=== PATIENT | female | born 1950 | race Caucasian/White ===

== ENCOUNTER 2020-01-17 11:12 | Outpatient (CLI) | payer MEDICARE, SELFPAY ==
--- NOTE | 2020-01-17 | ECG_ITS ---
Measurements Intervals [place]blong Rate: 73 P: 69 ME: 183 QRS: 37 QRSD: 102 T: 61 QT: 388 QTc: 428 Interpretive Statements SINUS RHYTHM POSSIBLE LEFT ATRIAL ENLARGEMENT LOW QRS VOLTAGE IN PRECORDIAL LEADS BASELINE ARTIFACT- II, III, AVR, AVL, AVF BORDERLINE ECG Electronically Signed On 01-17-2020 11:38:40 FREIGHT CAR REPAIRER by Emanuel Fung D.O.
== END 2020-01-17 11:13 | disposition home or self-care (01) ==
PROVIDERS: PCP Emergency Medicine; Visit Provider Emergency Medicine
DX: Z01.818 Encounter for other preprocedural examination (principal); R94.31 Abnormal electrocardiogram [ECG] [EKG]
CPT/HCPCS: 93005

== ENCOUNTER 2020-01-23 08:46 | Outpatient (CLI) | payer MEDICARE, SELFPAY ==
--- NOTE | ~2020-01-23 | MM_ITS ---
EXAMINATION: MM scrn nash implant BI w nedra HISTORY: Screening mammogram TECHNIQUE: Craniocaudal and mediolateral oblique 3-D tomosynthesis images with implant displacement a nd synthetic 2-D images were generated. Craniocaudal and mediolateral oblique views of the breasts wi thout implant displacement were obtained using full field digital mammography. CAD analysis was submi tted and interpreted. COMPARISON: 01/02/2019, 12/28/2017, 03/03/2016 BREAST PARENCHYMAL COMPOSITION: There are scattered areas of fibroglandular density. FINDINGS: There is no evidence of suspicious mass, calcification, or architectural distortion to sugg est malignancy in either breast. There has been no suspicious interval change. IMPRESSION: 1. No mammographic evidence of malignancy. 2. Recommend routine screening mammography in one year. BI-RADS Category 1: Negative Reviewed, dictated and finalized at location A. R OPERATOR
== END 2020-01-23 08:47 | disposition home or self-care (01) ==
LOC: ANHIMG 08:54
PROVIDERS: PCP Emergency Medicine; Visit Provider Nurse Practitioner Obstetrics & Gynecology
DX: Z12.31 Encounter for screening mammogram for malignant neoplasm of breast (principal)
CPT/HCPCS: 77063; 77067

== ENCOUNTER 2021-03-24 11:57 | Outpatient (CLI) | payer MEDICARE, SELFPAY ==
--- NOTE | ~2021-03-24 | MM_ITS ---
EXAMINATION: MM scrn nash implant BI w nedra HISTORY: Screening mammogram TECHNIQUE: Craniocaudal and mediolateral oblique 3-D tomosynthesis images with implant displacement a nd synthetic 2-D images were generated. Craniocaudal and mediolateral oblique views of the breasts wi thout implant displacement were obtained using full field digital mammography. CAD analysis was submi tted and interpreted. COMPARISON: Comparison to multiple prior studies sequentially, with oldest reviewed study dated 06/14. BREAST PARENCHYMAL COMPOSITION: There are scattered areas of fibroglandular density. FINDINGS: There is no evidence of suspicious mass, calcification, or architectural distortion to sugg est malignancy in either breast. There has been no suspicious interval change. IMPRESSION: 1. No mammographic evidence of malignancy. 2. Recommend routine screening mammography in one year. BI-RADS Category 1: Negative Reviewed, dictated and finalized at location A. AND GAME WARDEN
== END 2021-03-24 11:58 | disposition home or self-care (01) ==
LOC: ANHIMG 12:01
PROVIDERS: PCP Emergency Medicine; Visit Provider Nurse Practitioner Obstetrics & Gynecology
DX: Z12.31 Encounter for screening mammogram for malignant neoplasm of breast (principal)
CPT/HCPCS: 77063; 77067

== ENCOUNTER 2021-06-30 12:47 | Outpatient (CLI) | payer MEDICARE, SELFPAY ==
--- NOTE | ~2021-06-30 | DEXA_ITS ---
Bone Density Report Name: MAGNO TINEO Age: 70 Sex: Female Ethnicity: White Date of : 1950 Indication: postmenopausal; screening for osteoporosis; height loss; prior fracture; Referring Provider: TOR, LESLIE Huertas Study: Bone densitometry was performed. Exam Date: June 30, 2021 Accession number: [id number] Bone Density: Region BMD T-score Z-score Classification Femoral Neck (Left) 0.560 -2.6 -0.9 Osteoporosis Total Hip (Left) 0.705 -1.9 -0.5 Osteopenia Femoral Neck (Right) 0.571 -2.5 -0.8 Osteoporosis Total Hip (Right) 0.699 -2.0 -0.6 Osteopenia Total Hip Mean 0.702 -2.0 -0.6 Osteopenia World Health Organization criteria for BMD impression classify patients as: Normal (T-score at or above -1.0), Osteopenia (T-score between -1.0 and -2.5), or Osteoporosis (T-score at or below -2.5). 10-year Fracture Risk: FRAX not reported because: Some T-score for Spine Total or Hip Total or Femoral Neck at or below -2.5 Clinical Information Provided by Patient: Has had a low trauma fracture Has used the following medications: Calcium Patient maximum height was 64 Menopause Age: 57 No regular weight bearing exercise Drinks caffeinated beverages Onset of menses at age 15 Number of children 2 Impression: The patient has established osteoporosis, based on the Left Femoral Neck T-score and the existence of a prior fracture. The patient has risk factors, including: previous fracture. Discussion: HIGH RISK OF FRACTURE. BONE DENSITY IS UNDESIRABLY LOW AT ONE OR MORE SKELETAL SITES, CONSISTENT WITH POSTMENOPAUSAL OSTEOPOROSIS. This patient's lowest T-score, in a patient who has previously fractured, meets the World Health Organization's (WHO) criteria for severe osteoporosis. In untreated patients, the risk of osteoporotic fracture increases approximately two-fold for each 1.0 SD decrease in T-score. Low bone density is not the only risk factor for fracture; also consider factors such as patient's age, frailty or poor health, risk of falling, risk of injury, previous osteoporotic fracture, family history of osteoporosis, cigarette smoking, low body weight, etc. Not everyone with low bone mineral density has osteoporosis; osteomalacia and other metabolic bone disorders should also be considered. Patients who have osteoporosis should be evaluated for specific diseases and conditions (secondary causes) that may cause or contribute to bone loss. The [place] Association of Clinical Endocrinologists (AACE) and National Osteoporosis Foundation (NOF) recommend pharmacologic intervention for all postmenopausal women whose T-score is in this range. The patient should follow a healthful lifestyle (good nutrition with adequate calcium and vitamin D, and appropriate weight-bearing exercise). Follow-Up: Consider a repeat BMD and Ve
== END 2021-06-30 12:48 | disposition home or self-care (01) ==
LOC: ANHIMG 12:49
PROVIDERS: PCP Emergency Medicine; Visit Provider Nurse Practitioner Obstetrics & Gynecology
DX: M81.0 Age-related osteoporosis without current pathological fracture (principal); M85.852 Other specified disorders of bone density and structure, left thigh; M85.851 Other specified disorders of bone density and structure, right thigh
CPT/HCPCS: 77080

== ENCOUNTER 2022-05-30 12:43 | Outpatient (CLI) | payer MEDICARE, SELFPAY ==
--- NOTE | ~2022-05-30 | MMUS_ITS ---
EXAMINATION: MM diag nash implant BI w nedra, US breast LT complete HISTORY: Left breast pain TECHNIQUE: Additional 3-D tomosynthesis images of the breasts were performed and synthetic 2-D images were generated. CAD analysis was submitted and interpreted. High resolution complete left breast ult rasound was performed. COMPARISON: Comparison to multiple prior studies sequentially, with oldest reviewed study dated 12/05. BREAST PARENCHYMAL COMPOSITION: BREAST PARENCHYMAL COMPOSITION: There are scattered areas of fibroglandular density. FINDINGS: MAMMOGRAPHIC FINDINGS: There are no suspicious masses, calcifications or architectural distortion in either breast to sugges t malignancy. There are bilateral ULTRASOUND: Complete bilateral US of all 4 quadrants of the left breast and retroareolar region was reviewed. Nor mal heterogeneous echotexture without focal solid or cystic mass. IMPRESSION: 1. No evidence for malignancy in either breast. 2. . Routine yearly screening mammogram and regular clinical breast examination are recommended. BI-RADS Category 1: Negative Reviewed, dictated and finalized at location A. IMPRESSION: 1. No evidence for malignancy in either breast. 2. . Routine yearly screening mammogram and regular clinical breast examination are recommended. BI-RADS Category 1: Negative
== END 2022-05-30 12:44 | disposition home or self-care (01) ==
PROVIDERS: PCP Family Medicine; Visit Provider Nurse Practitioner Obstetrics & Gynecology
DX: N64.4 Mastodynia (principal)
CPT/HCPCS: 76641; 77062; 77066; G0279

== ENCOUNTER 2025-01-16 09:59 | Outpatient (CLI) | payer MEDICARE, SELFPAY ==
--- NOTE | ~2025-01-16 | MM_ITS ---
EXAMINATION: MM scrn nash implant BI w nedra HISTORY: Screening mammogram TECHNIQUE: Craniocaudal and mediolateral oblique 3-D tomosynthesis images with implant displacement and synthetic 2-D images were generated. Craniocaudal and mediolateral oblique views of the breasts without implant displacement were obtained using full field digital mammography. CAD analysis was submitted and interpreted. COMPARISON: Comparison to multiple prior studies sequentially, with oldest reviewed study dated 03/03/2016. BREAST PARENCHYMAL COMPOSITION: Dense: The breasts are heterogeneously dense, which may obscure small masses FINDINGS: There is no evidence of suspicious mass, calcification, or architectural distortion to suggest malignancy in either breast. There has been no suspicious interval change. IMPRESSION: 1. No mammographic evidence of malignancy. 2. Recommend routine screening mammography in one year. BI-RADS Category 1: Negative Reviewed, dictated and finalized at location B. H CUTTING INSPECTOR
--- OUTSIDE RECORDS SUMMARY | 2025-01-16 10:51 | XMS_ITS | Clinical Summary ---
Author Organization [facility] Address [address] [place] [id number] Care Team Providers Care Sand Mill Operator Facing Sand Name Role Phone Kody Palomo MD Primary Care Provider [phone] Social History Tobacco Use Types Packs/Day Years Used Date Smoking Tobacco: Never Assessed Comments Unknown Sex and Gender Information Value Date Recorded Sex Assigned at Not on file Legal Sex Female 2:03 PM CDT Gender Identity Not on file Sexual Orientation Not on file Plan of Treatment Health Maintenance Due Date Last Done Comments Colorectal Cancer Screening Colonoscopy (10 Years) 1950 Hepatitis C 1970 DTaP, Tdap and Td Vaccines ( 1 - Tdap) 12/04/1971 Mammogram Screening 1992 Pneumococcal Vaccine: 50+ Ye ars (1 of 1 - PCV) 2002 Zoster Vaccines (1 of 2) 2002 Annual Medicare Wellness Visit 2017 COVID-19 Vaccine (2 - 2024-2 6 season) 2024 11/18/2020 Influenza Adult (#1) 2024 RSV Immunization or 60+ Years (1 - 1-dose 75+ series) 12/04/2027 Dexa Scan (General) Completed 06/30/2021 Hepatitis A Vaccines Aged Out No long er eligible based on patient's age to complete this topic Meningococcal B Vaccine Aged Out No l onger eligible based on patient's age to complete this topic Meningococcal Vaccine Aged Out No michela keesha eligible based on patient's age to complete this topic RSV Immunizations Under 20 Months Aged Out No longer eligible based on patient's age to complete this topic Insurance [facility]ARE [facility] FIN[facility] Care Teams Sand Mill Operator Facing Sand Relationship Specialty Start Date End Date Kody Palomo MD [address] [id number] PCP - General 03/15/23
--- OUTSIDE RECORDS SUMMARY | 2025-01-16 10:51 | XMS_ITS | Encounter Summary ---
Author Organization [facility] Address [address] [place] [address] Phone Care Team Providers Care Qa Intern Name Role Phone Иван Lujan MD Unavailable [phone] Kody Palomo MD Primary Care Provider Reason for Visit * Reason Comments Medication Refill Encounter Details Date Type Department Care Team (Late st Contact Info) Description [facility] [address] [place] [address] Иван Lujan MD [address] [place] [address] Medication Refill Social History Tobacco Use Types Packs/Day Years Used Date Smoking Tobacco: Former Cigarettes 0 Q uit: 06/04/2020 Smokeless Tobacco: Never Alcohol Use Standard Drinks/Week Comments Yes 0 (1 standard drink = 0.6 oz pur e alcohol) social Comments Unknown Sex and Gender Information Value Date Recorded Sex Assigned at Not on file Legal Sex Female 10:00 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 Requested Prescriptions Pending Prescriptions Disp Refills pregabalin (LYRICA) 100 MG Capsule [Pharmacy Med Name: Pregabalin 100 MG Oral Capsule] 90 Capsule 0 Sig: TAKE 1 CAPSULE BY MOUTH THREE TIMES DAILY Not Delegated - Anticonvulsants Excluding Benzodiazepines Protocol Failed - 05/18/2022 10:36 AM Failed - This refill cannot be delegated Passed - Visit with relevant provider in past 12 months or upcoming 90 days Recent Visits Date Type Provider Dept 04/15/22 Office Visit Иван Lujan MD [facility] Neurology [facility] 11/15/21 Office Visit Иван Lujan MD [facility] 08/12/21 Office Visit Иван Lujan MD [facility] Neurology [facility] Showing recent visits within past 365 days and meeting all other requirements Future Appointments Date Type Provider Dept 07/14/22 Appointment Иван Lujan MD [facility] Showing future appointments within next 90 days and meeting all other requirements documented in this encounter Plan of Treatment Upcoming Encounters Date Type Department Care Team (Late st Contact Info) Description 07/01/2025 1:00 PM CDT [facility] [address] [place] [phone] Иван Lujan MD [address] [place] [address] documented as of this encounter Visit Diagnoses Diagnosis Stenosis of cervical spine with myelopathy documented in this encounter Care Teams Qa Intern Relationship Specialty Start Date End Date Kody Palomo MD [address] [address] [place] [address] PCP - General Family Medicine 04/15/22 Иван Lujan MD [address] [place] [address] Consulting Physician Neurology 05/13/21 documented as of this encounter
--- OUTSIDE RECORDS SUMMARY | 2025-01-16 10:51 | XMS_ITS | Clinical Summary ---
Author Organization [facility] Address [address] [place] [address] Care Team Providers Care Special Service Officer Name Role Phone Kody Palomo MD Primary Care Provider + Allergies Active Allergy Reactions Criticality Noted Date Comments Iron Hives Medium 10/24/2010 Hives Medications pregabalin (LYRICA) 100 mg capsule Take 150 mg by mouth 3 (three) times a day 01/19/20 22 Active finasteride (PROSCAR) 5 mg tablet TAKE 1 TABLET BY MOUTH ON MONDAY, MONDAY AND Monday06/25/19 23 Active spironolactone (ALDACTONE) 50 mg tablet Take 1 tablet (50 mg total) by mouth daily 07/25/19 23 Active aspirin 81 mg enteric coated tablet Take 1 tablet (81 mg total) by mouth daily 30 tablet 11 09/03/19 24 Active rosuvastatin (CRESTOR) 10 mg tablet Take 1 tablet by mouth once daily 90 tablet 1 12/25/19 25 Active rosuvastatin (CRESTOR) 10 mg tablet Take 1 tablet (10 mg total) by mouth daily 30 tablet 11 09/03/19 24 025 Discontinued Active Problems Problem Noted Date Diagnosed Date Cervical stenosis of spine 04/11/2024 Peripheral polyneuropathy 04/11/2024 Pure hypercholesterolemia 02/20/2024 Assessment & Plan (02/20/2024 3:04 PM GENERAL ADJUSTER): - stable - continue rosuvastatin Other chest pain 08/24/2022 Assessment & Plan (08/24/2022 2:16 PM CDT): - normal EKG - ref to cardiology for eval JACK (generalized anxiety disorder) 08/24/2022 Assessment & Plan (02/20/2024 2:57 PM GENERAL ADJUSTER): - stable - f/u if pt wants to start SSRI/SNRI Assessment & Plan (08/24/2022 2:17 PM CDT): - discussed risks associated with benzo use and rec for SSRI/SNRI for anxiety more appropriate - discussed my reluctance to continue benzo use and risks associated with disruption of sleep patterns - pt unhappy with alternative res such as SSRI, trazodone, ambien - pt states she will seek medication from an alternative physician. Encounter for annual wellness exam in Medicare p atient 02/02/2022 Assessment & Plan (02/20/2024 2:57 PM GENERAL ADJUSTER): - Reviewed with the patient BMI, blood pressure, diet, exercise, and encouraged healthy lifestyle choices. - Screened for high risk behaviors, diet and exercise habits, and symptoms of depression. - reviewed screening labs; ordered Dexa - encouraged regular exercise, healthy lifestyle, obtain/maintain healthy weight Assessment & Plan (02/02/2022 4:49 PM GENERAL ADJUSTER): - Reviewed with the patient BMI, blood pressure, diet, exercise, and encouraged healthy lifestyle choices. - Screened for high risk behaviors, diet and exercise habits, and symptoms of depression. - check screening labs - encouraged regular exercise Immunizations Immunization Administration Dates Next Due Influenza, Unspecified 02/20/2024(Deferr ed: Patient Refused),12/04/2022(Deferred: Patient Refused),02/02/2022(Deferred: Patient Refused),12/04/2020(Deferred: Patient Refused) Pneumococcal Conjugate Pcv20 02/20/2024(Deferred : Patient Refused) Surgical History Surgery Date Site/Laterality Comments SECTION Family History Medical History Relation Name Comments Throat cancer Father No Known Problems Mother Relation Name Status Comments Father (Age 85) Mother Alive Social History Tobacco Use Types Packs/Day Years Used Date Smoking Tobacco: Former Cigarettes Tobacco Cessation:Counseling Given: Not Answered AUDIT-C Answer Date Recorded Q1: How often do you have a drink containing alc ohol? 2-3 times a week 02/20/2024 Q2: How many drinks containi ng alcohol do you have on a typical day when you are drinking? 1 or 2 02/20/2024 Q3: How often do you have si x or more drinks on one occasion? Never 02/20/2024 PHQ-2 Answer Date Recorded PHQ-2 Total Score (If total score is 3 or more points, staff should administer the PHQ-9) 0 02/20/2024 Comments Unknown Sex and Gender Information Value Date Recorded Sex Assigned at Not on file Legal Sex Female 3:14 AM GENERAL ADJUSTER Gender Identity Not on file Sexual Orientation Not on file Last Filed Vital Signs Vital Sign Reading Time Taken Comments Blood Pressure 108/68 04/11/2024 3:43 PM GENERAL ADJUSTER Pulse 73 04/11/2024 3:43 PM GENERAL ADJUSTER Temperature 36.1 C (97 F) 04/11/2024 3:43 PM GENERAL ADJUSTER Respiratory Rate 16 04/11/2024 3:43 PM GENERAL ADJUSTER Oxygen Saturation 99% 04/11/2024 3:43 PM GENERAL ADJUSTER Inhaled Oxygen Concentration - - Weight 57.2 kg (126 lb) 04/11/2024 3:43 PM GENERAL ADJUSTER Height 157.5 cm (5' 2) 04/11/2024 3:43 PM GENERAL ADJUSTER Body Mass Index 23.05 04/11/2024 3:43 PM GENERAL ADJUSTER Plan of Treatment Health Maintenance Due Date Last Done Comments Hepatitis C Screening 1950 DTaP/Tdap/Td Vaccine (1 - Tdap) 12/04/1963 Hepatitis B Screening 1970 Pneumococcal vaccine 65+ (1 of 1 - PCV) 2002 Zoster Vaccine (1 of 2) 2002 Breast Cancer Screening-Mammogram 05/31/2023 05/30/2022, 04/05/2021, 02/05/2020 Osteoporosis Screening-Bone Density Scan 07/01/2023 06/30/2021 Colon Cancer Screening-Colonoscopy 09/29/20242014 Covid-19 Vaccine ( season) 2024, 11/18/2020 Influenza Vaccine (#1) 2024 Depression Screening 02/19/2025 02/20/2024, 08/24/2022, 02/02/2022 Fall Risk Assessment 02/19/2025 02/20/2024, 08/24/2022, 02/02/2022 Well Visit 65+ 02/19/2025 02/20/2024, 02/02/2022 Procedures Procedure Name Priority Date/Time Associated Diagnosis Comments SCREENING MAMMOGRAM 2D BILATERAL Schedule Routine, Read Routine (OP Routine) 05/30/2022 DEXA AXIAL SKELETON BONE DENSITY 1 OR MORE SITES Schedule Routine, Read Routine (OP Routine) 06/30/2021 COLONOSCOPY Routine 09/29/2014 from Last 3 Months or Most Recently Relevant to Health Maintenance Results * Screening Mammogram 2D Bilateral (05/30/2022) Anatomical Region Laterality Modality Breast Bilateral Mammography Narrative 05/30/2022 Report has been scanned into chart. Historical Provider MD FRANCISCO MAMMO PROCEDURES Anali l Result * Dexa Axial Skeleton Bone Density 1 or 2 Site (06/30/2021) Anatomical Region Laterality Modality Body N/A Radiographic Sarina ging Narrative 06/30/2021 Report is in media Historical Provider MD FRANCISCO DXA PROCEDURES Final Result * Colonoscopy (09/29/2014) Anatomical Region Laterality Modality Other Narrative 09/29/2014 Report is in care everywhere Historical Provider ENDOSCOPY PROCEDURES Anali l Result from Last 3 Months or Most Recently Relevant to Health Maintenance [place] [address] MEDICARE [employer] [place] [address] [facility] [employer] Care Teams Special Service Officer Relationship Specialty Start Date End Date Kody Palomo MD [address] [id number] PCP - General Family Medicine 02/02/22
--- OUTSIDE RECORDS SUMMARY | 2025-01-16 10:51 | XMS_ITS | Encounter Summary ---
Author Organization [facility] Address [address] [place] [address] Phone Care Team Providers Care Customer Service Trainer Name Role Phone Иван Lujan MD Unavailable [phone] Kody Palomo MD Primary Care Provider [phone] Reason for Visit * Reason Comments Medication Refill Encounter Details Date Type Department Care Team (Late st Contact Info) Description 11/29/2022 [facility] [address] [place] [address] Иван Lujan MD [address] [place] [address] Medication Refill Social History Tobacco Use Types Packs/Day Years Used Date Smoking Tobacco: Former Cigarettes 0 Q uit: 06/04/2020 Smokeless Tobacco: Never Alcohol Use Standard Drinks/Week Comments Yes 0 (1 standard drink = 0.6 oz pur e alcohol) social Comments Unknown Sex and Gender Information Value Date Recorded Sex Assigned at Not on file Legal Sex Female 10:00 AM 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 Requested Prescriptions Pending Prescriptions Disp Refills pregabalin (LYRICA) 150 MG Capsule [Pharmacy Med Name: Pregabalin 150 MG Oral Capsule] 90 Capsule 3 Sig: TAKE 1 CAPSULE BY MOUTH THREE TIMES DAILY Not Delegated - Anticonvulsants Excluding Benzodiazepines Protocol Failed - 11/29/2022 11:10 AM Failed - This refill cannot be delegated Passed - Visit with relevant provider in past 12 months or upcoming 90 days Recent Visits Date Type Provider Dept 07/14/22 Office Visit Иван Lujan MD [facility]/15/22 Office Visit Иван Lujan MD [facility] Showing recent visits within past 365 days and meeting all other requirements Future Appointments Date Type Provider Dept 01/12/23 Appointment Иван Lujan MD [facility] Showing future appointments within next 90 days and meeting all other requirements documented in this encounter Plan of Treatment Upcoming Encounters Date Type Department Care Team (Late st Contact Info) Description 07/01/2025 1:00 PM CDT Office [facility] [address] [place] [address] Иван Lujan MD [address] [place] [address] documented as of this encounter Visit Diagnoses Diagnosis Stenosis of cervical spine with myelopathy documented in this encounter Care Teams Customer Service Trainer Relationship Specialty Start Date End Date Kody Palomo MD [address] [address] PCP - General Family Medicine 04/15/22 Иван Lujan MD [address] [place] [address] Consulting Physician Neurology 05/13/21 documented as of this encounter
--- OUTSIDE RECORDS SUMMARY | 2025-01-16 10:51 | XMS_ITS | Continuity of Care Document ---
Author Organization [facility] Address [address] [place] [address] [place] [address] Care Team Providers Care Data Entry Name Role Phone CARMEN VENTURA Primary Care Provider Assessment No assessment recorded. Plan of Treatment Reminders Order Date Submit Date Provider Last Modified By Organization Details Last Modified Time Details Appointments None recorded. Lab urinalysis , dipstick 2024 [facility], [address], [address], [place], [address], 11:10:30 culture, urine 2024 [facility] (Lab), [address], [place], [address], 21:59:43 Referral None recorded. Procedures None recorded. Surgeries None recorded. Imaging MAMMO, screening, digital, bilateral 2024 [facility], [address], [place], [address], 04:01:10 Medication Orders Macrobid 100 mg capsule 2024 025 [facility], [address], [place], [address], 05:01:24 estradiol 0.01% (0.1 mg/gram) vaginal cream 2024 025 [facility], [address], [place], [address], 11:48:31 Patient TargetsNo targets recorded. Patient InstructionsNo instructions recorded. Reason for Referral None Reported. Results Created Date Observation Date Name Description Value Unit Range Abnormal Flag Note LastModifiedBy Organization Detail LastModifiedTime 12/19/1912/18/2024 CULTU RE: URINE result report SEE RESULT S BELOW Test: Cultu re: Urine Speci men Sourc e: Urine - Clean Catch Speci men Type: Urine Speci men Date: 12/18 1343 Resul t Date: 12/19 Resul t Statu s: Final resul t Abnor mal: No Resul ting Lab: [facility] [address] [facility] [address] Tel: CULTU RE ----- ----- ----- --- No growt h in 1 day (dete ction level of 10,00 0 colon ies / ml.) Not Available [facility] (Lab) [address], [place], [address], 12/19/2024 21:59:43 12/19/1912/18/2024 urina lysis , dipst ick Leukocytes + Not Available [facility] bryan [address], [place], [address], 12/18/2024 11:10:03 12/19/1912/18/2024 urina lysis , dipst ick Protein + Not Available [facility] [address], [place], [address], 12/18/2024 11:10:03 12/19/1912/18/2024 urina lysis , dipst ick pH 5 Not Available [facility] [address], [place], [address], 12/18/2024 11:10:03 12/19/1912/18/2024 urina lysis , dipst ick Blood trace Not Available [facility] [address], [place], [address], 12/18/2024 11:10:03 12/19/1912/18/2024 urina lysis , dipst ick Specific [place] 1.015 Not Available [facility] sabi [address], [place], [address], 12/18/2024 11:10:03 12/19/1912/18/2024 urina lysis , dipst ick Appearance cloudy Not Available [facility] [address], [place], [address], 12/18/2024 11:10:03 12/19/1912/18/2024 urina lysis , dipst ick Color yellow Not Available [facility] [address], [place], [address], 12/18/2024 11:10:03 Result Notes None recorded. Problems Name Problem SNOMED Code Status Onset Date Resolution Date Notes Provider Name and Address Organization Details Recorded Time Leukocyt osis 667270187 Completed 201402/14/2021 LEUKOCYTO SIS NOS;Pract ice ID: 0001 Jazlynkarey Ramirez [facility] 22:08:45 Adult health examinat ion Completed 201402/14/2021 Routine general medical examinati on at a health care facility; Practice ID: 0001 Jazlyn Ramirez [facility] 22:08:19 Speciali zed medical examinat ion Completed 201402/14/2021 Routine gynecolog ical examinati on;Practi ce ID: 0001 Jazlyn Ramirez [facility] 22:09:17 Screenin g for malignan t neoplasm of cervix Completed 201402/14/2021 SCREEN MAL NEOP-CERV IX;Practi ce ID: 0001 Jazlyn Ramirez [facility] 22:08:59 Screenin g for malignan t neoplasm of rectum Completed 201402/14/2021 Screening for malignant neoplasms of the rectum;Pr actice ID: 0001 Jazlyn Ramirez [facility] 22:09:04 Abnormal cervical Papanico laou smear [id number] Completed 201402/14/2021 Other abnormal papanicol aou smear of cervix and cervical HPV;Recor ded Elsewhere : No Locati on: [facility] So urce: EHR Chron ic: N Practic e ID: 0001 Vadim able Time: 03:45:00 PM [facility]06 Abnormal cervical Papanico laou smear with human papillom avirus deoxyrib onucleic acid detected [id number] Completed 201402/14/2021 Cervical high risk human papilloma virus (HPV) DNA test positive; Practice ID: 0001 [facility]:08:10 Pregnanc y test negative [id number] Completed 201402/14/2021 Negative Test;Prac samuel ID: 0001 Jazlyn Ramirez [facility] 22:08:[address] Concept Completed 201502/14/2021 Encntr for general adult medical exam w/o abnormal findings; Practice ID: 0001 Jazlyn Ramirez [facility] 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 22:09:13 Atrophic vaginiti s [id number] Completed 201602/14/2021 Postmenop ausal atrophic vaginitis ;Practice ID: 0001 Jazlyn Ramirez [facility] 22:08:23 Human papillom avirus deoxyrib onucleic acid detected , high risk on cervical specimen [id number] Completed 201602/14/2021 Cervical high risk HPV DNA test positive; Practice ID: 0001 Jazlyn Ramirez [facility] 22:08:41 Atypical squamous cells of undeterm ined signific ance on cervical Papanico laou smear [id number] Completed 201602/14/2021 Atyp squam cell of undet signfc cyto smr crvx (ASC-US); Practice ID: 0001 Jazlyn Ramirez [facility] 22:08:28 Acute vaginiti s [id number] Completed 201602/14/2021 Acute vaginitis ;Practice ID: 0001 Jazlyn Ramirez [facility] 22:08:16 Vaginola bial hernia Completed 201602/14/2021 Other specified noninflam matory disorders of vagina;Pr actice ID: 0001 Jazlyn Ramirez [facility] 22:09:21 Endometr ium thickene d [id number] Completed 201902/14/2021 Jazlyn Ramirez [facility] 22:08:32 Postmeno pausal bleeding [id number] Completed 201902/14/2021 Jazlyn Ramirez [facility] 22:08:50 Hormone replacem ent therapy Completed 201902/14/2021 pellets and prometriu m Jazlyn [facility] 22:08:37 Problem Notes None recorded. Procedures Surgical History Date Name Laterality Status Provider Name and Address Organization Details Recorded Time 05/24/19 24 Date of Last Pap Smear completed Shelbie Mac [facility] 06/01/2023 10:56:20 02/09/20 21 nerve conduction study completed Jeanine Boudreaux [facility] [address], [place], [address], [facility] 02/15/2021 16:10:16 06/05/19 21 Other completed Jeanine Boudreaux [facility] [address], [place], [address], [facility] 02/15/2021 16:10:00 02/23/20 20 Date of Last Mammogram completed Jazlyn Ramirez [facility] 02/14/2021 22:11:55 01/24/20 20 Endometrial Biopsy completed Yamileth Chacko MD [address], [place], [address], [facility] 01/24/2020 16:24:43 11/02/19 17 Colposcopy completed Jazlyn Ramirez [facility] 02/15/2021 13:08:28 02/04/20 16 colonoscopy completed Jeanine Boudreaux [facility] [address], [place], [address], [facility] 02/15/2021 16:09:25 procedure on back completed Lisa Christianson [facility] 01/13/2020 11:54:08 Shoulder joint surgery completed Lisa Christianson [facility] 01/13/2020 11:54:14 Imaging Results None recorded. Procedure Notes None recorded. Medical Equipment None Reported. Allergies No known drug allergies Medications Name Sig Start Date Stop Date Status Note LastModified by Organization Details LastModified Time amoxicill in 500 mg capsule TAKE ONE CAPSULE BY MOUTH EVERY 12 HOURS FOR 10 DAYS 02/15 completed Not Available Not Available Not Available trazodone 50 mg tablet TAKE 1 TABLET BY MOUTH EVERY NIGHT AT BEDTIME 02/15 completed Not Available Not Available Not Available Pain Reliever (acetamin ophen) 325 mg tablet TAKE 2 TABLETS BY MOUTH EVERY 4 HOURS NEEDED FOR MILD PAIN 05/31 completed Not Available Not Available Not Available hydrocodo ne 10 mg-acetam inophen 325 mg tablet TAKE 1 TABLET BY MOUTH FOUR TIMES DAILY 02/15 completed Not Available Not Available Not Available tramadol 50 mg tablet TAKE 1 TABLET BY MOUTH TWICE DAILY FOR 7 DAYS active Not Available Not Available No t Available Macrobid 100 mg capsule Take 1 capsule every 12 hours by oral route for 7 days. 01/01 completed Not Available Not Available Not Available oxycodone -acetamin ophen 5 mg-325 mg tablet 02/15 completed Not Available Not Available Not Available amoxicill in 875 mg tablet TAKE 1 TABLET BY MOUTH TWICE DAILY FOR 10 DAYS 05/11 completed Not Available Not Available Not Available Metrogel Vaginal 0.75 % (37.5 mg/5 gram) insert 1 applicat orful by vaginal route every day at bedtime for 5 nights 07/31 completed Prescrib ed Elsewher e: No Locat ion: [facility] odify By: amkuhsolitario Cummings ncounter DateTime : 12/10/19 17 02:31:40 PM Not Available Not Available Not Available famotidin e 20 mg tablet 02/15 completed Not Available Not Available Not Available amitripty line 25 mg tablet TAKE 1 TABLET BY MOUTH NIGHTLY 05/11 completed Not Available Not Available Not Available benzonata te 100 mg capsule TAKE 1 CAPSULE BY MOUTH THREE TIMES DAILY FOR 10 DAYS 05/11 completed Not Available Not Available Not Available gabapenti n 300 mg capsule TAKE 1 CAPSULE BY MOUTH THREE TIMES DAILY 05/11 completed Not Available Not Available Not Available estradiol 0.01% (0.1 mg/gram) vaginal cream INSERT 1GM VAGINALL Y EVERY NIGHT FOR 2 WEEKS. AFTER 2 WEEKS INSERT 1GM VAGINALL Y AT BEDTIME TWICE WEEKLY FOR MAINTENA NCE DOSE active Not Available Not Available No t Available finasteri de 5 mg tablet TAKE 1 TABLET BY MOUTH ON MONDAY, Y AND MONDAY active Not Available Not Available No t Available spironola ctone 50 mg tablet TAKE 1 TABLET BY MOUTH ONCE DAILY active Not Available Not Available No t Available diazepam 5 mg tablet TAKE 1/2 (ONE-CHARLES F) TABLET BY MOUTH TWICE DAILY NEEDED FOR MUSCLE SPASM AND FOR PAIN AVOID DRIVING OR OPERATIN G MACHINES 05/11 completed Not Available Not Available Not Available progester one micronize d 100 mg capsule TAKE 1 CAPSULE BY MOUTH AT BEDTIME 02/15 completed Not Available Not Available Not Available rosuvasta tin 10 mg tablet TAKE 1 TABLET BY MOUTH ONCE DAILY active Not Available Not Available No t Available duloxetin e 30 mg capsule,d elayed release TAKE 1 CAPSULE BY MOUTH ONCE DAILY 05/11 completed Not Available Not Available Not Available pregabali n 75 mg capsule TAKE 1 CAPSULE BY MOUTH TWICE DAILY (AVOID DRIVING OR OPERATIN G MACHINER Y) 10/07 completed Not Available Not Available Not Available pregabali n 100 mg capsule TAKE 1 CAPSULE BY MOUTH THREE TIMES DAILY 05/31 completed Not Available Not Available Not Available pregabali n 150 mg capsule TAKE 1 CAPSULE BY MOUTH THREE TIMES DAILY active Not Available Not Available No t Available finasteri de 01/23 completed Not Available Not Available Not Available spironola ctone 02/15 completed Not Available Not Available Not Available Sleep Aid (diphenhy dramine) 05/11 completed Not Available Not Available Not Available olopatadi ne 0.2 % eye drops INSTILL 1 DROP INTO EACH EYE ONCE DAILY 01/12 completed Not Available Not Available Not Available melatonin 10 mg capsule TAKE 1 TABLET BY MOUTH EVERY NIGHT AT BEDTIME NEEDED FOR INSOMNIA 02/15 completed Not Available Not Available Not Available Osphena 60 mg tablet take 1 tablet by oral route every day with food 02/09 completed Prescrib rupinder Sultana e: No Locat ion: [facility] odify By: kana sandhu DateTime : 09/17/19 03:45:00 PM Not Available Not Available Not Available Vitals Date Recorded Body height Body mass index (BMI) Body weight Systolic And Diastolic Provider Name and Address Organization Details Last Updated DateTime 12/18/2024 157.48 cm 23 kg/m2 63973.64 g 109/70 mm[Hg] lEyssa Quiñones [facility] 12/18/2024 11:07:52 Social History Question Answer Notes LastModified by Organizat ion Details LastModified Time Tobacco Smoking Status Current Every Day Smoker Jazlyn Ramirez [facility], [facility] 02/14/2021 22:14:01 Are You Blind Or Do You Have Difficulty Seeing? No Information not available 02/14/2021 What Is Your Level Of Caffeine Consumption? Occasional Information not available 02/14/2021 Are You Deaf Or Do You Have Serious Difficulty Hearing? No Information not available 02/14/2021 What Type Of Diet Are You Following? REGULAR Information not available 02/14/2021 Do You Use Your Seat Belt Or Car Seat Routinely? Yes Information not available 02/14/2021 Are You Sexually Active? Yes Information not available 02/14/2021 Do You Have Smoke And Carbon Monoxide Detectors In Your Home? Yes Information not available 02/14/2021 Do You Use Sunscreen Routinely? Yes Information not available 02/14/2021 Do You Have Difficulty Walking Or Climbing Stairs? No Information not available 05/11/2022 Sex: Unknown Functional Status Question Answer Note LastModified by Organizat ion Details LastModified Time Do you use any illicit or recreational drugs? No Information not available 02/14/2021 What is your level of alcohol consumption? Occasional Information not available 02/14/2021 Are you able to walk independently without assistance or assistive devices? YESWOREST Information not available 02/14/2021 Are you able to care for yourself independently? Yes Information not available 05/11/2022 Do you have difficulty dressing, bathing, grooming, or toileting? No Information not available 05/11/2022 What is your exercise level? None Information not available 02/14/2021 Mental Status Question Answer Note LastModified by Organization D etails LastModified Time Do you feel stressed (tense, restless, nervous, or anxious, or unable to sleep at night)? [id number] Information not available 02/14/2021 Family History Nothing Reported. Medical History Condition Response Allergies (Food, seasonal, environmental ) N Other N Breast Cancer N Drug/Latex Allergies/Reactions N Blood Transfusion N Dermatologic Disorders N Lung Disease N Defects or Inherited Disease N Breast Problem N Gestational Diabetes N Hematologic disorders N Anesthesia Complications N History of STI N Deep Vein Thrombosis N Polycystic ovary syndrome N Anxiety Disorder N Autoimmune disease N Arthritis N Infertility N Polyps N Acid Reflux (GERD) N History of abnormal pap N Cancer N Stroke N Varicosities N Neurologic/Epilepsy N Endometriosis N High Cholesterol N Headaches N Fibromyalgia N Kidney Disease N Heart Problems N Kidney or Bladder Problems N Thyroid Problems N GI Problems N Eating Disorder N Anemia N Art (IVF or FET) N Psychiatric Illness N Ovarian Cancer N Diabetes N Pulmonary (TB, Asthma) N Hepatitis/Liver Disease N Eczema N Urinary Tract Infection N Abuse/Domestic Violence N Asthma N Trauma/Violence N Depression/ depression N Heart Disease N Pre-Eclampsia N Hypertension N Osteoporosis N Thrombophilias N Gynecological History Statement/Question Response If Post Menopausal, Age at Menopause Abnormal Pap Yes Date of Last Mammogram 02/23/2020 Sexually Active? Y STIs/STDs Y Colposcopy 11/01/2016 HPV Vaccine N Date of Last Pap Smear 05/24/2023 Sexual Problems? N Current Control Method Menopause LMP Unknown Obstetrics History GPAL:G 2 P 0 0 0 2 Type Value Living 2 Total 2 Past Encounters Encounter ID Performer Location Encounter Start Date Encounter Closed Date Diagnosis/Indication Diagnosis SNOMED-CT Code Diagnosis ICD10 Code Diagnosis IMO Codes Diagnosis Note [id number] TICO De Paz [facility] [address] [address] 12/18/2024 10:48:41 12/18/2024 12:25:53 Dysuria 69445856 R30.0 01502 UA done, cx sentincrea se clear fluids, avoid bladder irritantsr x for macrobid Screening mammography 24 507718 Z12.31 4234721029 Order given for updated mammogram Urinary sy stem finding 124413200 R39.9 4899104 Rec vaginal estrogen creamrx sent, r/b/a reviewedVe g based moisturize r routine reviewed Drug therapy finding 309 793129 Z79.890 12483132 Encouraged her to f/u to find out what hormone pellets she has. Discussed the need to be on progestero ne if on systemic estrogen. We discussed alternativ e HRT delivery methods along with nonhormona l options. R/B/A reviewed Time spent in visit is a total of 30 mins with at least 50% of visit consisting of counseling and review of plan of care. Health Concerns Section Related Observation LastModified by Organization Detai ls LastModified Time None Recorded Concern Status LastModified by Organization Details LastModified Time None Recorded Payers Encounter Date Sequence Insurance Name Policy Number Policy Pugh Covered Member ID Pugh Member ID Guarantor Name 12/18/2024 1 [place] Juliana Ramsey [id number] Juliana Ramsey 12/18/2024 2 [employer] (MEDICARE SUPPLEMENT) Juliana Ramsey [id number] Juliana Ramsey Notes Date Note Type Note Provider Name and Address Organization Details Recorded Time 12/18/2024 text/html 74yoHere today for urinary symptoms. Urinary frequency and dysuria, comes and goes over the last 3 months. Vaginal dryness at times.Neg flank painsNeg n/v/fNeg flu-like symptomsNeg hematuria or PMBOn HRT pellets (she is unsure what hormones) that she gets replaced every 3 monthsMammogram last 2021 or 2022 Elyssa crawford, [facility] 12/18/2024 12:28:06 OBGyn Episode No OBEpisode recorded.
--- OUTSIDE RECORDS SUMMARY | 2025-01-16 10:51 | XMS_ITS | Encounter Summary ---
Author Organization [facility] Address [address] [place] [address] Phone Care Team Providers Care Roller Checker Name Role Phone Иван Lujan MD Unavailable [phone] Kody Palomo MD Primary Care Provider [phone] Reason for Visit * Reason Comments Medication Refill Encounter Details Date Type Department Care Team ([facility] Contact Info) Description 04/16/2022 Refill [facility] [address] [place] [phone] Иван Lujan MD [address] [place] [address] Medication Refill Social History Tobacco Use Types Packs/Day Years Used Date Smoking Tobacco: Former Cigarettes 0 Q uit: 06/04/2020 Smokeless Tobacco: Never Alcohol Use Standard Drinks/Week Comments Yes 0 (1 standard drink = 0.6 oz pur e alcohol) social Comments Unknown Sex and Gender Information Value Date Recorded Sex Assigned at Not on file 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 No / Unsure 04/15/2022 9:16 AM MACHINE ROOM OPERATOR documented as of this encounter Plan of Treatment Upcoming Encounters Date Type Department Care Team ([facility] Contact Info) Description 07/01/2025 1:00 PM CDT Office Visit [facility] [address] [place] [address] Иван Lujan MD [address] [place] [address] documented as of this encounter Visit Diagnoses Diagnosis Stenosis of cervical spine with myelopathy documented in this encounter Care Teams Roller Checker Relationship Specialty Start Date End Date Kody Palomo MD [address] [address] PCP - General Family Medicine 04/15/22 Иван Lujan MD [facility] [facility] [place] [address] Consulting Physician Neurology 05/13/21 documented as of this encounter
--- OUTSIDE RECORDS SUMMARY | 2025-01-16 10:52 | XMS_ITS | Data Portability ---
Author Organization 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 Patient will come back in a year unless there are new symptoms. Not available 05/24/2023 12:04:47 Plan of Treatment Reminders Order Date Submit Date Provider Last Modified By Organization Details Last Modified Time Details Appointments None recorded. Lab urinalysis, dipstick [email or web address] [place] [address], [address], [address], [place], [address], 11:10:30 culture, urine 2024 025 [facility] (Lab), [address], [place], [address], 5 21:59:43 urinalysis, dipstick 2023 024 [place] [facility], [address], [place], [address], 4 09:26:17 urinalysis, dipstick 2023 024 heidi [facility], [address], [address], [place], [address], 4 13:48:13 Referral None recorded. Procedures None recorded. Surgeries None recorded. Imaging MAMMO, screening, digital, bilateral 2024 025 [facility], [address], [place], [address], 5 04:01:10 MAMMO, screening, bilateral [email or web address] [facility], [address], [place], [address], 4 12:02:41 DEXA, axial skeleton + vertebral fracture assessment [address] [facility], [address], [place], [address], 4 12:02:41 MAMMO, screening, bilateral - Diagnostic mammo okay if required. [address] [facility], [address], [place], [address], 3 05:01:16 US, breast, unilateral, w/ axilla - Breast pain left side only; May do diagnostic mammo if required. 2022 023 [place] [facility], [address], [place], [address], 3 05:01:00 Medication Orders Macrobid 100 mg capsule 2024 025 [facility], [address] [facility], [place], [address], 5 05:01:24 estradiol 0.01% (0.1 mg/gram) vaginal cream 2024 025 [facility], [address] [place], [address], 11:48:31 Macrobid 100 mg capsule 2023 024 [facility], [address] [place], [address], 05:01:24 Macrobid 100 mg capsule 2023 024 [facility], [address] [place], [address], 05:01:24 Patient TargetsNo targets recorded. Patient InstructionsNo instructions recorded. Reason for Referral None Reported. 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 Atrop hic cell patte rn. Elect selina valera lencho d by Marilynn Coelho, CT on 2023 at 11:28 AM ----- ----- ----- ----- ----- ----- ----- ----- ----- ----- ----- ----- ----- ----- ----- ----- ----- ---- HPV RESUL TS: HPV mRNA E6/E7 : No HPV mRNA Detec aislinn NOTE: This high risk HPV mRNA assay detec ts fourt een high- risk HPV types (16, 18, 31, 33, 35, 39, 45, 51, 52, 56, 58, 59, 66, 68) witho ut diffe renti ation . COMME NT: This speci men was revie wed by a Cytot echno logis t and/o r Patho logis t (as indic ated in this repor t) after evalu ation using the Thinp rep Imagi ng Syste m. CLINI DECLAN INFOR MATIO N: Menst rual Statu s: LMP (if appli cable ): Clini declan Histo ry/Pr eviou s Pap: Type of Neopl sherine (if appli cable ): Signi fican t Clini declan Findi ngs: Other Histo ry: Hormo clif (if appli cable ): PAP EDUCA TYLOR L NOTE: The Pap Test is a scree sally test with an inher ent false negat vivek rate. Liqui d-bas ed sampl ing may decre ase, but will not elimi dawn, false negat vivek resul ts. A negat vivek resul t does not precl ude the prese nce and/o r devel opmen t of disea se, since the prese nce of abnor mal cells in the sampl e depen ds on the locat ion of the lesio n and sampl ing techn ique. Bridgett nued regul ar scree sally is the best metho d of cance r preve ntion . If repor aislinn cytol ogic findi ng do not corre late with physi declan and/o r histo rical findi ngs, furth er inves tigat ion is recom shirley d, as clini paz isbell nted. Not Available [facility] (Lab) [address] [facility], [place], [address], 05/29/2023 12:32:41 12/19/1912/18/2024 CULTU RE: URINE result report SEE RESULT S BELOW Test: Cultu re: Urine Speci men Sourc e: Urine - Clean Catch Speci men Type: Urine Speci men Date: 12/18 1343 Resul t Date: 12/19 Resul t Statu s: Final resul t Abnor mal: No Resul ting Lab: [facility] [address] [facility] [address] Tel: CULTU RE ----- ----- ----- --- No growt h in 1 day (dete ction level of 10,00 0 colon ies / ml.) Not Available [facility] (Lab) [address] [facility], [place], [address], 12/19/2024 21:59:43 12/19/1912/18/2024 urina lysis , dipst ick Leukocytes + Not Available [facility] [address], [place], [address], 12/18/2024 11:10:03 12/19/1912/18/2024 urina lysis , dipst ick Protein + Not Available [facility] [address], [place], [address], 12/18/2024 11:10:03 12/19/1912/18/2024 urina lysis , dipst ick pH 5 Not Available [facility] [address], [place], [address], 12/18/2024 11:10:03 12/19/19 25 12/18/2024 urina lysis , dipst ick Blood trace Not Available [facility] [address], [place], [address], 12/18/2024 11:10:03 12/19/1912/18/2024 urina lysis , dipst ick Specific [place] 1.015 Not Available [facility] [address], [place], [address], 12/18/2024 11:10:03 12/19/1912/18/2024 urina lysis , dipst ick Appearance cloudy Not Available [facility] [address], [place], [address], 12/18/2024 11:10:03 12/19/1912/18/2024 urina lysis , dipst ick Color yellow Not Available [facility] [address], [place], [address], 12/18/2024 11:10:03 Result Notes None recorded. Problems Name Problem SNOMED Code Status Onset Date Resolution Date Notes Provider Name and Address Organization Details Recorded Time Leukocyt osis 813965656 Completed 201402/14/2021 LEUKOCYTO SIS NOS;Pract ice ID: 0001 Jazlyn Ramirez [facility] 22:08:45 Adult health examinat ion Completed 201402/14/2021 Routine general medical examinati on at a health care facility; Practice ID: 0001 Jazlyn Ramirez [facility] 22:08:19 Speciali zed medical examinat ion Completed 201402/14/2021 Routine gynecolog ical examinati on;Practi ce ID: 0001 Jazlyn Ramirez [facility] 22:09:17 Screenin g for malignan t neoplasm of cervix Completed 201402/14/2021 SCREEN MAL NEOP-CERV IX;Practi ce ID: 0001 Jazlyn Ramirez [facility] 1 22:08:59 Screenin g for malignan t neoplasm of rectum Completed 201402/14/2021 Screening for malignant neoplasms of the rectum;Pr actice ID: 0001 Jazlyn Ramirez [facility] 1 22:09:04 Abnormal cervical Papanico laou smear 809557402 Completed 201402/14/2021 Other abnormal papanicol aou smear of cervix and cervical HPV;Recor ded Elsewhere : No Locati on: [facility] So urce: EHR Chron ic: N Practic e ID: 0001 Bill able Time: 03:45:00 PM Jazlyn Ramirez [facility] 22:08:06 Abnormal cervical Papanico laou smear with human papillom avirus deoxyrib onucleic acid detected 482167524 Completed 201402/14/2021 Cervical high risk human papilloma virus (HPV) DNA test positive; Practice ID: 0001 Jazlyn Ramirez [facility] 22:08:10 Pregnanc y test negative [id number] Completed 201402/14/2021 Negative Test;Prac samuel ID: 0001 Jazlyn Ramirez [facility] 22:08:[address] Concept Completed 201502/14/2021 Encntr for general adult medical exam w/o abnormal findings; Practice ID: 0001 Jazlyn Ramirez [facility] 22:09:[address] Concept Completed 201502/14/2021 Encntr for rn visiting exam (general) (routine) w/o abn findings; Practice ID: 0001 Jazlyn Ramirez [facility] 22:09:13 Atrophic vaginiti s 01745885 Completed 201602/14/2021 Postmenop ausal atrophic vaginitis ;Practice ID: 0001 Jazlyn [address] [facility] 1 22:08:23 Human papillom avirus deoxyrib onucleic acid detected , high risk on cervical specimen 998801695 Completed 201602/14/2021 Cervical high risk HPV DNA test positive; Practice ID: 0001 [address]azlyn [address] [facility] 22:08:41 Atypical squamous cells of undeterm ined signific ance on cervical Papanico laou smear 036822511 Completed 201602/14/2021 Atyp squam cell of undet signfc cyto smr crvx (ASC-US); Practice ID: 0001 Jazlyn Ramirez [facility] 22:08:28 Acute vaginiti s 19753199 Completed 201602/14/2021 Acute vaginitis ;Practice ID: 0001 Jazlyn Ramirez [facility] 22:08:16 Vaginola bial hernia Completed 201602/14/2021 Other specified noninflam matory disorders of vagina;Pr actice ID: 0001 Jazlyn Ramirez [facility] 22:09:21 Endometr ium thickene d 854721886 Completed 201902/14/[address] [facility] 22:08:32 Postmeno pausal bleeding 02181018 Completed 201902/14/2021 Jazlyn Ramirez [facility] 22:08:50 Hormone replacem ent therapy Completed 201902/14/2021 pellets and prometriu m Jazlyn [facility] 22:08:37 Problem Notes None recorded. Procedures Surgical History Date Name Laterality Status Provider Name and Address Organization Details Recorded Time 05/24/19 24 Date of Last Pap Smear completed Shelbie Mac [facility] 06/01/2023 10:56:20 02/09/20 21 nerve conduction study completed Jeanine Boudreaux [facility] [address], [place], [address], [facility] 02/15/2021 16:10:16 06/05/19 21 Other completed Jeanine Boudreaux [facility] [address], [place], [address], [facility] 02/15/2021 16:10:00 02/23/20 20 Date of Last Mammogram completed Jazlyn Ramirez [facility] 02/14/2021 22:11:55 01/24/20 20 Endometrial Biopsy completed Yamileth Chacko MD [address], [place], [address], [facility] 01/24/2020 16:24:43 11/02/19 17 Colposcopy [address] Ramirez [facility] 02/15/2021 13:08:28 02/04/20 16 colonoscopy completed Jeanine Boudreaux [facility] [address], [place], [address], [facility] 02/15/2021 16:09:25 procedure on back completed Lisa Christianson [facility] 01/13/2020 11:54:08 Shoulder joint surgery completed Lisa Christianson [facility] 01/13/2020 11:54:14 Imaging Results None recorded. [...] Prescrib ed Elsewher e: No Locat ion: [facility] odify By: amkuhl E ncounter DateTime : 12/10/19 17 02:31:40 PM [...] every day with food 02/[address] e: No Locat ion: [facility] M odify By: kana sandhu DateTime : 09/17/19 03:45:00 PM Not Available Not Available Not Available Vitals Date Recorded Body height Body mass index (BMI) Body weight Systolic And Diastolic Provider Name and Address Organization Details Last Updated DateTime 05/11/2022 157.48 cm 23.4 kg/m2 54143.82 g 114/73 mm[Hg] [facility] 05/11/2022 15:01:30 Date Recorded Body weight Systolic And Diastolic Provider Name and Address Organization Details Last Updated DateTime 05/18/2023 58396.27 g 111/71 mm[Hg] Susan Moraleser [facility] 05/18/2023 12:15:59 Date Recorded Body weight Systolic And Diastolic Provider Name and Address Organization Details Last Updated DateTime 05/24/2023 70518.05 g 103/69 mm[Hg] Jazlyn Juarez [facility] 05/24/2023 12:05:34 Date Recorded Body height Body mass index (BMI) Body weight Systolic And Diastolic Provider Name and Address Organization Details Last Updated DateTime 06/01/2023 157.48 cm 22.5 kg/m2 11080.86 g 116/72 mm[Hg] Shelbie Estefania [facility] 06/01/2023 17:07:02 Date Recorded Body height Body mass index (BMI) Body weight Systolic And Diastolic Provider Name and Address Organization Details Last Updated DateTime 12/18/2024 157.48 cm 23 kg/m2 10161.64 g 109/70 mm[Hg] Elyssa Nuria [facility] 12/18/2024 11:07:52 Social History Question Answer Notes LastModified by Organizat ion Details LastModified Time Tobacco Smoking Status Current Every Day Smoker Jazlyn Ramirez [facility] 02/14/2021 22:14:01 Are You Blind Or [...] anxious, or unable to sleep at night)? [id number] Information not available 02/14/2021 Family History Nothing Reported. Medical History Condition Response Other N Blood Transfusion N Dermatologic Disorders N Gestational Diabetes N Anxiety Disorder N Autoimmune disease N Arthritis N Polyps N Infertility N Acid Reflux (GERD) N Cancer N Varicosities N Stroke N Neurologic/Epilepsy N Fibromyalgia N Headaches N Kidney Disease N Heart Problems N Kidney or Bladder Problems N Eating Disorder N Art (IVF or FET) N Hepatitis/Liver Disease N Urinary Tract Infection N Asthma N Trauma/Violence N Thrombophilias N Allergies (Food, seasonal, environmental ) N Breast Cancer N Drug/Latex Allergies/Reactions N Lung Disease N Defects or Inherited Disease N Breast Problem N Hematologic disorders N Anesthesia Complications N History of STI N Deep Vein Thrombosis N Polycystic ovary syndrome N History of abnormal pap N Endometriosis N High Cholesterol N Thyroid Problems N GI Problems N Anemia N Psychiatric Illness N Ovarian Cancer N Diabetes N Pulmonary (TB, Asthma) N Eczema N Abuse/Domestic Violence N Depression/ depression N Heart Disease N Pre-Eclampsia N Hypertension N Osteoporosis N Gynecological History Statement/Question Response If Post [...] ICD10 Code Diagnosis IMO Codes Diagnosis Note [id number] Jeanine Boudreaux [facility] [address] [address] 01/13/2020 11:44:06 01/13/2020 14:44:58 Gynecologic examination 26477899 Z01.419 Take Calcium with Vitamin D 12-1500mg daily. Do monthly self breast exams. It is advised to get annual flu shot in the fall and she could obtain at [facility] or [facility] clinic. If you haven't received the Tdap vaccine in the last 10 years you should obtain one as well. Have mammogram yearly, bone density every 2-3 years and colonoscop y every 5-10 years depending on findings and history. Engage in daily exercise of low impact aerobic exercise 45-60 minutes 4-5 times weekly. Avoid tobacco and illicit drugs as well as using moderation with alcohol intake less than 1-2 8 oz beverages daily. This lifestyle behavior pattern will lead to less health conditions and longer life span. If BMI greater than 25 weight watchers or dietary consult advised. Questions have been answered. Patient appears to understand instructio ns, but if you have any further questions call or respond to this email Pap/hpv abn last year (+HPV) neg pap. Updated this year. Abnormal u terine bleeding [id number] 9100 N93.9 She is on HRT pellet and oral progestero ne therapy at a center in [facility]. She started having some AUB on this therapy. We agreed to do an updated US since exam seemed to be wnl today. She gets labs & will have them sent. [id number] Dave Krause MD [facility] [address] [address] 01/17/2020 11:23:07 01/17/2020 11:47:03 Postmenopausal bleeding 96320345 N95.0 [id number] Yamileth Chacko MD [facility] [address],[place] [address] 01/24/2020 15:53:17 01/24/2020 16:32:51 Endometrium thickened 952314162 R93.89 Hormone re placement therapy 886270633 Z79.890 Postmenopa usal bleeding 26220792 N95.0 [id number] Jeanine Boudreaux , [facility] [address],[place] [address] 02/15/2021 15:26:29 02/15/2021 17:12:02 Gynecologic examination 38121739 Z01.419 Take Calcium with Vitamin D 12-1500mg daily. Do monthly self breast exams. It is advised to get annual flu shot in the fall and she could obtain at [facility] or [facility] clinic. If you haven't received the Tdap vaccine in the last 10 years you should obtain one as well. Have mammogram yearly, bone density every 2-3 years and colonoscop y every 5-10 years depending on findings and history. Engage in daily exercise of low impact aerobic exercise 45-60 minutes 4-5 times weekly. Avoid tobacco and illicit drugs as well as using moderation with alcohol intake less than 1-2 8 oz beverages daily. This lifestyle behavior pattern will lead to less health conditions and longer life span. If BMI greater than 25 weight watchers or dietary consult advised. Questions have been answered. Patient appears to understand instructio ns, but if you have any further questions call or respond to this email Pap/hpv ASCUS w/Neg HPV 2020Hx of +HR HPVWants pap/hpv this yearSTD declinedCo michela-Manage d Dr. Moody PCPDexa-or deredMammo - ordered Postmenopa usal osteopenia 702509611 M85.80 [id number] Jeanine Boudreaux [facility] [address],[place] [address] 10/07/2021 14:19:40 10/07/2021 15:06:24 Postmenopausal osteoporosis 462222318 M81.0 Z91.81 Z82.62 Z87.19 Today we reviewed bone health recommenda tions, osteoporos is/osteope tho, risks/bene fits of current therapies & lifestyle modificati ons. She is greatly concerned about using oral medication for this issue with it's possible GI side effects. In addition, she has already had two breaks (neck & shoulder and has Fam. Hx of osteoporos is). Therapy such as Reclast injectiona bles might be a better option for her. We discussed using an endocrinol ogist to help manage her bone health as this is not a medication I routinely prescribe & manage. She is open to a referral for this issue Dr. Tanja Barnes local endocrinol ogist. Additional handouts & website for internatio nal osteoporos is foundation given for further home review. Time spent in visit is a total of 30 mins with at least 50% of visit consisting of counseling and review of plan of care. [id number] Jeanine Boudreaux [place] [address] [address] 05/11/2022 14:51:18 05/11/2022 15:22:00 Pain of left breast 8196285770 N64.4 Z12.31 Today we agreed to order screening mammo with diagnostic US unilateral for left side.Okay to pursue diagnostic mammo if required by Imaging center.Exa m WNL exam some tenderness in upper inner quadrant of left breast with palpation. Time spent in visit is a total of 15 mins with at least 50% of visit consisting of counseling and review of plan of care. [id number] Ewa Ortiz [place] [address] [address] 05/18/2023 12:08:53 05/18/2023 13:55:05 Urinary symptoms 328886817 R39.9 urine cx sentrx sent - r/b/a reviewedwi ll update patient with cx results when availableR TC for WWE or sooner if needed Time spent in visit is a total of 18mins with at least 50% of visit consisting of counseling and review of plan of care. [id number] Jeanine Boudreaux [place] [address],[place] [address] 05/24/2023 11:56:11 05/24/2023 12:58:57 Gynecologic examination 77999399 Z01.419 Take Calcium with Vitamin D 12-1500mg daily. Do monthly self breast exams. It is advised to get annual flu shot in the fall and she could obtain at [facility] or [facility] care clinic. If you haven't received the Tdap vaccine in the last 10 years you should obtain one as well. Have mammogram yearly, bone density every 2-3 years and colonoscop y every 5-10 years depending on findings and history. Engage in daily exercise of low impact aerobic exercise 45-60 minutes 4-5 times weekly. Avoid tobacco and illicit drugs as well as using moderation with alcohol intake less than 1-2 8 oz beverages daily. This lifestyle behavior pattern will lead to less health conditions and longer life span. If BMI greater than 25 weight watchers or dietary consult advised. Questions have been answered. Patient appears to understand instructio ns, but if you have any further questions call or respond to this email Pap/hpv sent per requestIf wnl can d/c or q3-5yrs STD Screen declined Genetic Screen discussed Colon Screen UTD PCP Dexa Screen ordered (Did not see endocrinol ogist previously referred too in 2021). Routine Labs PCP Screening mammography 24 623778 Z12.31 Screening for osteoporosis 686470044 Z13.820 [id number] TICO De Paz [facility] [address],[facility] [place] [address] 06/01/2023 17:03:35 06/01/2023 17:41:07 Urinary symptoms 875696027 R39.9 urine cx sentwill treat with macrobid - r/b/a revieweden couraged adequate hydration/ water intake, decrease caffeinewi ll update pt with cx results when available Time spent in visit is a total of 20 mins with at least 50% of visit consisting of counseling and review of plan of care. [id number] TICO De Paz [facility] [address],[facility] [place] [address] 12/18/2024 10:48:41 12/18/2024 12:25:53 Dysuria 01777834 R30.0 05964 UA done, cx sentincrea se clear fluids, avoid bladder irritantsr x for macrobid Screening mammography 24 825140 Z12.31 [id number] Order given for updated mammogram Urinary sy stem finding 080102752 R39.9 3717819 Rec vaginal estrogen creamrx sent, r/b/a reviewedVe g based moisturize r routine reviewed Drug therapy finding 309 294239 Z79.890 [id number] Encouraged her to f/u to find out [...] by Organization Details LastModified Time None Recorded Advance Directives Directive None Recorded Payers Insurance Date Sequence Insurance Name Policy Number Policy Pugh Covered Member ID Pugh Member ID Guarantor Name 12/15/2024 1 [place] Juliana Ramsey [id number] Juliana Ramsey 12/15/2024 2 [employer] (MEDICARE SUPPLEMENT) Juliana Ramsey [id number] Juliana Ramsey Notes Date Note Type Note Provider Name and Address Organization Details Recorded Time 3 text/html Breast PainReported by PatientHPIFor location, patient reportsleftandupper __ quadrant. For onset/timing, patient reports2-7 days. For duration, patient reportsintermittent. For quality, patient reportsthrobbing. For context, patient reportspost menopause. For associated symptoms, patient reportsno fever,no chills,no skin redness,no nipple discharge,no sore nipples,breasts not full, sore, unable to express milk,no breast swelling,no arm pain,no arm swelling,no chest pain,no malaise, andno breast lump.Breast ROS: Neg Nipple discharge Neg Skin discoloration or texture changes Neg Breast Lump/Mass Neg Family Hx of breast cancer/other cancers ++ left side only Tenderness/pain Neg Trauma to breast Neg Underwire or ill fitting bras Neg notable assymetry of breastsROS as noted in the HPI Breast implants 2yrs agoCovid shot >3mos agoFell broke neck Jeanine Boudreaux [facility]- [address], [place], [address], [facility] 05/11/2022 15:20:40 4 text/html 72yopresents for urinary symptomsurinary burning/frequency/pressur e x 1 weekno vaginal symptomsneg n/v/fneg flu-like symptomsneg flank pains TICO De Paz [address], [place], [address], [facility] 05/18/2023 13:48:39 4 text/html Annual Medical Sales Post-MenopausalReported by PatientGenitourinary symptomsFor menopausal symptoms, patient reportsno menopausal symptomsandnormal vaginal lubrication. For vaginal bleeding, patient reportshistory of menopause having occurredandno history of post menopausal bleeding. For urinary symptoms, patient reportsno hematuria,no incontinence,no nocturia, andno urinary frequency. For vulva, patient reportsno genital lesionandno vulvar atrophy. For vagina, patient reportsnormal vaginal dischargeandno vaginal atrophy.Breast symptomsFor breast, patient reportsno breast lump,no nipple discharge, andno breast pain.Psychological symptomsFor sexual complaints, patient reportsno sexual complaints. For psychological symptoms, patient reportsno depressionandno anxiety.Preventative measuresFor preventive measures, patient reportsencourage regular mammograms starting age 40,encourage self breast examination,encourage regular exercise,encourage no tobacco use,needs to schedule mammogram,history of recent colonoscopy, andneeds to schedule bone density (did not go to protection consultant referral). Jeanine Boudreaux [facility]- [address], [place], [address], [facility] 05/24/2023 12:56:13 4 text/html 72yopresents for urinary odor/pressuretx'd for UTI on 05/17, (+) cx, completed antibiotic coursesymptoms resolved then returned a few days agoneg burningneg flank painsneg n/v/fneg flu-like symptomsneg vaginal symptoms T[address], [place], [address], [facility] 06/01/2023 17:39:33 5 text/html 74yoHere today for urinary symptoms. Urinary frequency and dysuria, comes and goes over the last 3 months. Vaginal dryness at times.Neg flank painsNeg n/v/fNeg flu-like symptomsNeg hematuria or PMBOn HRT pellets (she is unsure what hormones) that she gets replaced every 3 monthsMammogram last 2021 or 2022 [address]ford, [facility] 12/18/2024 12:28:06 OBGyn Episode Ob Episode Information Episode Created Date Number of Fetuses Patient Bloodtype Patient rh Status Prepregnancy Weight lbs Domestic Partner Domestic Partner Phone Father Name Paper Machine Back Tender Status 01/13/20 20 1 CLOSED Fetus Data First Name Last Name Admitted to NICU Weight (g) Sex Living Outcome Pediatric Complications Fetus ID Race Codes Race Delivery Type [id number] Vaginal Delivery Mason Calculation Initial Mason Date Initial Exam Date Initial Exam Provider Initial Ultrasound Date Last Menstrual Period Date Ultra Sound Weeks Gestation 0 Eighteen To Twenty Week Mason Update Ultra Sound Date Fundal Height At Umbil Quickening Date Ultra Sound Latest Weeks Gestation Final Mason Confirmed By Final Mason Confirmed Date Final Mason Date Ultra Sound Latest Days Gestation 0 0 Menstrual History Last Menstrual Date Menses Monthly On Bcp Conception Prior Menses Frequency Hcg Plus Date Menarche Onset Age Delivery Information Delivery Date Delivery Type Labor Anesthesia Weeks Gestation Incision Type Labor Labor Length Hrs Delivered By Post Complications Tubal Sterilization Discharge Date Comments 4 Discharge Information Feeding Method Contraceptive Method Maternal HG B and HCT Levels Ob Episode Information Episode Created Date Number of Fetuses Patient Bloodtype Patient rh Status Prepregnancy Weight lbs Domestic Partner Domestic Partner Phone Father Name Paper Machine Back Tender Status 01/13/20 20 1 CLOSED Fetus Data First Name Last Name Admitted to NICU Weight (g) Sex Living Outcome Pediatric Complications Fetus ID Race Codes Race Delivery Type [id number] Vaginal Delivery Mason Calculation Initial Mason Date Initial Exam Date Initial Exam Provider Initial Ultrasound Date Last Menstrual Period Date Ultra Sound Weeks Gestation 0 Eighteen To Twenty Week Mason Update Ultra Sound Date Fundal Height At Umbil Quickening Date Ultra Sound Latest Weeks Gestation Final Mason Confirmed By Final Mason Confirmed Date Final Mason Date Ultra Sound Latest Days Gestation 0 0 Menstrual History Last Menstrual Date Menses Monthly On Bcp Conception Prior Menses Frequency Hcg Plus Date Menarche Onset Age Delivery Information Delivery Date Delivery Type Labor Anesthesia Weeks Gestation Incision Type Labor Labor Length Hrs Delivered By Post Complications Tubal Sterilization Discharge Date Comments 7 Discharge Information Feeding Method Contraceptive Method Maternal HG B and HCT Levels
--- OUTSIDE RECORDS SUMMARY | 2025-01-16 10:52 | XMS_ITS | Clinical Summary ---
Author Organization [facility] Address [address] [place] [address] Phone Care Team Providers Care Plasma Specialist Name Role Phone Иван Lujan MD Unavailable [phone] Kody Palomo MD Primary Care Provider [phone] Allergies Active Allergy Reactions Criticality Noted Date Comments Iron Hives 05/13/2021 Medications Acetaminophen (TYLENOL 8 HOUR PO) Take by mouth. Active Multiple Vitamin (MULTIVITAMIN PO) Take by mouth. Active B Complex Vitamins (B COMPLEX PO) Take by mouth. Active BIOTIN FORTE PO Take by mouth. Active Ascorbic Acid (VITAMIN C PO) Take by mouth. Active MAGNESIUM PO Take by mouth. Active VITAMIN D PO Take by mouth. Active pregabalin (LYRICA) 150 MG CapsuleIndicati ons:Stenosis of cervical spine with myelopathy Take 1 Capsule by mouth 3 times daily. 270 Capsule 2 5 Active pregabalin (LYRICA) 150 MG CapsuleIndicati ons:Stenosis of cervical spine with myelopathy TAKE 1 CAPSULE BY MOUTH THREE TIMES DAILY 270 Capsule 5 12/31/19 25 Discontinu ed(Reorder ) Encounters Date Type Department Care Team Description 12/30/2024 1:00 PM CDT Office Visit [facility] - Neurology [facility] [address] [place] [address] Иван Lujan MD Stenosis of cervical spine with myelopathy (Primary Dx); Neck pain; Constipation, unspecified constipation type Discharge Disposition: Discharged to home or Selfcare 12/30/2024 Telephone [facility] - [place] [address] [place] [address] Иван Lujan MD 12/30/2024 Travel 12/11/[address] [facility] [place] [address] [place] [address] Иван Lujan MD Medication Refill from Last 3 Months Family History Medical History Relation Name Comments No Known Problems Brother No Known Problems Mother No Known Problems Sister Relation Name Status Comments Brother Alive Father Mother Alive Sister Alive Social History Tobacco Use Types Packs/Day Years Used Date Smoking Tobacco: Former Cigarettes 0 Q uit: 06/04/2020 Smokeless Tobacco: Never Tobacco Cessation:Counseling Given: Not Answered Alcohol Use Standard Drinks/Week Comments Yes 0 (1 standard drink = 0.6 oz pur e alcohol) social Comments Unknown Sex and Gender Information Value Date Recorded Sex Assigned at Not on file 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 Gender Identity Not on file Sexual Orientation Not on file Last Filed Vital Signs Vital Sign Reading Time Taken Comments Blood Pressure 112/76 12/30/2024 1:05 PM CDT Pulse 74 12/30/2024 1:05 PM CDT Temperature 36.4 C (97.6 F) 12/30/2024 1:05 PM CDT Respiratory Rate 16 12/30/2024 1:05 PM CDT Oxygen Saturation 97% 12/30/2024 1:05 PM CDT Inhaled Oxygen Concentration - - Weight 58 kg (127 lb 12.8 oz) 12/30/2024 1:05 PM CDT Height 161.5 cm (5' 3.6) 12/30/2024 1:05 PM CDT Body Mass Index 22.21 12/30/2024 1:05 PM CDT Plan of Treatment Upcoming Encounters Date Type Department Care Team (Late st Contact Info) Description 07/01/2025 1:00 PM CDT Office Visit [facility] - [place] [address] [place] [address] Иван Lujan MD [address] [place] [address] Health Maintenance Due Date Last Done Comments DEXA Bone Density 1950 Hepatitis C Virus (HCV) Screening 1950 TdaP Immunization 1950 Cologuard 1997 Immunochemical Fecal Occult Blood 1997 Pneumococcal Immunization (5 0+ years) (1 of 1 - PCV) 2002 Zoster Immunization (1 of 2) 2002 Medicare Initial AWV [id number] 11/04/2018 Mammogram 05/31/2023 05/30/2022 Influenza Immunization (#1) 2024 SARS-COV-2 Immunization ( season) 2024 01/22/2021, 11/18/2020 Colonoscopy 02/02/2026 02/03/2016, 09/29/2014 Colorectal Cancer Screening 02/02/2026 Respiratory Syncytial Virus (RSV) Immunization (Adult) (1 - 1-dose 75+ series) 12/04/2027 Hepatitis B Immunization Aged Out No longer eligible based on patient's age to complete this topic Human Papillomavirus (HPV) Immunization Aged Out No longer eligible b ased on patient's age to complete this topic Meningococcal Immunization (ACWY) Aged Out No longer eligible b ased on patient's age to complete this topic Rotavirus Immunization Aged Out No lo nger eligible based on patient's age to complete this topic Insurance [facility] [place] [facility] Care Teams Plasma Specialist Relationship Specialty Start Date End Date Kody Palomo MD [address] [address] PCP - General Family Medicine 04/15/22 Иван Lujan MD [address] [place] [id number] Consulting Physician Neurology 05/13/21
--- OUTSIDE RECORDS SUMMARY | 2025-01-16 10:52 | XMS_ITS | Encounter Summary ---
Author Organization [facility] Address [address] [place] [address] Phone Care Team Providers Care Loan Associate Name Role Phone Fransisco Sunny Primary Care Provider [phone] Иван Lujan MD Unavailable [phone] Kody Palomo MD Primary Care Provider [phone] Reason for Visit * Reason Comments Medication Refill Encounter Details Date Type Department Care Team (Late Contact Info) Description 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 Gender Identity Not on file Sexual Orientation Not on file documented as of this encounter Plan of Treatment Upcoming Encounters Date Type Department Care Team (Late Contact Info) Description 07/01/2025 1:00 PM CDT Office Visit [facility] [address] [place] [phone] Иван Lujan MD [address] [place] [address] documented as of this encounter Visit Diagnoses Diagnosis Stenosis of cervical spine with myelopathy documented in this encounter Care Teams Loan Associate Relationship Specialty Start Date End Date Sunny Moody [address] [place] [address] PCP - General Family Medicine 04/21/21 04/14/22 Kody Palomo MD [address] [address] PCP - General Family Medicine 04/15/22 Иван Lujan MD [address] [place] [address] Consulting Physician Neurology 05/13/21 documented as of this encounter
--- OUTSIDE RECORDS SUMMARY | 2025-01-16 10:52 | XMS_ITS | Encounter Summary ---
Author Organization [facility] Address [address] [place] [address] Care Team Providers Care Loft Worker Apprentice Name Role Phone Sunny Moody MD Primary Care Provider [phone] Kody Palomo MD Primary Care Provider + Encounter Details Date Type Department Care Team (Late st Contact Info) Description 09/29/2014 Orders Only [facility] Information Management [address] [place] [address] Scanning, Provider Social History Tobacco Use Types Packs/Day Years Used Date Smoking Tobacco: Never Assessed Comments Unknown Sex and Gender Information Value Date Recorded Sex Assigned at Not on file 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 Gender Identity Not on file Sexual Orientation Not on file documented as of this encounter Plan of Treatment Not on file documented as of this encounter Procedures Procedure Name Priority Date/Time Associated Diagnosis Comments GI - RESULT 09/29/2014 documented in this encounter Results * GI - RESULT (09/29/2014) Anatomical Region Laterality Modality Other us Provider Scanning Final Result documented in this encounter Visit Diagnoses Not on filedocumented in this encounter Care Teams Loft Worker Apprentice Relationship Specialty Start Date End Date Sunny Moody MD [address] [place] [address] PCP - General Family Medicine 12/06/21 02/01/22 Kody Palomo MD [address] [place] [id number] PCP - General Family Medicine 02/02/22 documented as of this encounter
== END 2025-01-16 10:00 | disposition home or self-care (01) ==
LOC: ANHFOHIMG 10:03
PROVIDERS: PCP Family Medicine; Visit Provider Nurse Practitioner
DX: Z12.31 Encounter for screening mammogram for malignant neoplasm of breast (principal)
CPT/HCPCS: 77063; 77067